=== PATIENT | female | born 2000 | race Caucasian/White ===

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

== ENCOUNTER 2023-07-21 09:36 | Emergency (ER) | payer OTHER ==
[~2023-07-21] VITALS: Ht 157.5 cm; Wt 50.8 kg
[2023-07-21 09:45] VITALS: BP 108/89; PULSE 87; RESP 20; TEMP 98.3; O2SAT 96
[2023-07-21 10:25] VITALS: O2SAT 96
[2023-07-21] MEDS: ONDANSETRON 4 MG ODT PO ONE (11:05)
[2023-07-21] MEDS: KETOROLAC 30 MG/ML VIAL IM ONE (11:06)
[2023-07-21] MEDS: ACETAMINOPHEN EXTRA STRENGTH 500 MG TAB PO ONE (11:08)
[2023-07-21 13:39] VITALS: BP 120/81; PULSE 78; RESP 16; TEMP 98; O2SAT 99
== END 2023-07-21 13:39 | disposition home or self-care (01) ==
LOC: MED 09:36
DX: F07.81 Postconcussional syndrome (principal)
CPT/HCPCS: 81025; 93005; 96372; 99283; J1885; Q0162

== ENCOUNTER 2023-12-01 12:50 | Emergency (ER) | payer OTHER ==
[~2023-12-01] VITALS: Ht 157.5 cm; Wt 50.8 kg
[2023-12-01 13:11] VITALS: BP 113/77; PULSE 80; RESP 18; TEMP 97.1; O2SAT 99
[2023-12-01] MEDS: IBUPROFEN 800 MG TAB PO ONE (15:13)
== END 2023-12-01 15:23 | disposition home or self-care (01) ==
LOC: MED 12:50
DX: S62.637A Displaced fracture of distal phalanx of left little finger, initial encounter for closed fracture (principal); W22.8XXA Striking against or struck by other objects, initial encounter; Y92.89 Other specified places as the place of occurrence of the external cause; Y93.89 Activity, other specified; Y99.8 Other external cause status
CPT/HCPCS: 73130; 81025; 99283